=== PATIENT | female | born 1970 | race American Indian/Alaskan Native ===

== ENCOUNTER 2022-11-21 07:11 | Day surgery (SDC) | payer MEDICAID, OTHER ==
[~2022-11-21 07:11] MED LIST: Dextrose 5%-0.45% NaCl 1,000 ML IV SCH; Midazolam 1 MG/ML 2 ML SDV ONE; Sodium Chloride 0.9% 10 ML Syringe FLUSH PRN; Sodium Chloride 0.9% 10 ML Syringe FLUSH SCH; fentaNYL 100 MCG/2 ML SDV ONE
[2022-11-21] MEDS ORDERED: Midazolam 1 MG/ML 2 ML SDV IV ONE ×5 (07:12→08:12)
[2022-11-21] MEDS ORDERED: fentaNYL 100 MCG/2 ML SDV IV ONE ×3 (07:12→08:06)
== END 2022-11-21 10:15 | disposition home or self-care (01) ==
LOC: DL.ENDO 07:11
PROVIDERS: ATTEND Internal Medicine Gastroenterology
DX: K21.9 Gastro-esophageal reflux disease without esophagitis (principal); R10.13 Epigastric pain; E66.09 Other obesity due to excess calories; I10 Essential (primary) hypertension; E11.9 Type 2 diabetes mellitus without complications; E78.5 Hyperlipidemia, unspecified; E03.9 Hypothyroidism, unspecified; Z98.890 Other specified postprocedural states; Z68.35 Body mass index [BMI] 35.0-35.9, adult
CPT/HCPCS: 43239; J2250; J3010; J7042